=== PATIENT | female | born 1955 | race Caucasian/White ===

== ENCOUNTER 2024-05-05 07:41 | Day surgery (SDC) | payer OTHER ==
[~2024-05-05] VITALS: Ht 162.6 cm; Wt 90.7 kg
[2024-05-05] MEDS ORDERED: MEPERIDINE 100 MG INJ. 100 MG/ML VIAL ONE (07:47)
[2024-05-05] MEDS ORDERED: MIDAZOLAM HCL 5 MG/5 ML VIAL ONE (07:47)
[2024-05-05 10:37] VITALS: O2SAT 98
[2024-05-05 10:45] VITALS: TEMP 97.3
[2024-05-05 13:04] VITALS: BP_SYST 189; PULSE 79; RESP 27
== END 2024-05-05 10:30 | disposition home or self-care (01) ==
LOC: SDS 07:41 → SMU 07:41 → SDS 10:30
PROVIDERS: ATTEND Student in an Organized Health Care Education/Training Program
DX: K28.9 Gastrojejunal ulcer, unspecified as acute or chronic, without hemorrhage or perforation (principal); K29.50 Unspecified chronic gastritis without bleeding; K31.89 Other diseases of stomach and duodenum; K29.70 Gastritis, unspecified, without bleeding; I10 Essential (primary) hypertension; E78.5 Hyperlipidemia, unspecified; K21.9 Gastro-esophageal reflux disease without esophagitis; Z90.710 Acquired absence of both cervix and uterus; Z91.041 Radiographic dye allergy status; Z98.84 Bariatric surgery status; Z90.49 Acquired absence of other specified parts of digestive tract; Z79.899 Other long term (current) drug therapy
CPT/HCPCS: 43239; 99152; 88304; 88305; 88312; 88313; G0378; J2250; J2175

== ENCOUNTER → 2024-07-28 | Day surgery (SDC) | payer OTHER ==
[~2024-07-28] VITALS: Ht 162.6 cm; Wt 90.7 kg
[~2024-07-28] MED LIST: DIPHENHYDRAMINE INJ 50 MG/ML VIAL ONE; MIDAZOLAM HCL 5 MG/5 ML VIAL ONE; fentaNYL CITRATE/PF 100 MCG/2 ML AMP ONE
[2024-07-28 11:40] VITALS: O2SAT 99
[2024-07-28 13:42] VITALS: BP_SYST 163; PULSE 67; RESP 16
== END | disposition home or self-care (01) ==
LOC: SDS 08:23 → STU 08:27 → SMU 09:12
PROVIDERS: ATTEND Student in an Organized Health Care Education/Training Program
DX: R19.5 Other fecal abnormalities (principal); D12.5 Benign neoplasm of sigmoid colon; D12.4 Benign neoplasm of descending colon; K57.30 Diverticulosis of large intestine without perforation or abscess without bleeding; K64.8 Other hemorrhoids; I10 Essential (primary) hypertension; E78.5 Hyperlipidemia, unspecified; Z90.49 Acquired absence of other specified parts of digestive tract; Z98.84 Bariatric surgery status; Z79.899 Other long term (current) drug therapy; Z91.041 Radiographic dye allergy status; Z87.891 Personal history of nicotine dependence
CPT/HCPCS: 45385; 88305; J1200; J2250; J3010